=== PATIENT | male | born 1970 | race Caucasian/White ===

== ENCOUNTER 2020-06-09 19:33 | Emergency (ER) | payer OTHER ==
[~2020-06-09] VITALS: Ht 182.9 cm; Wt 104.0 kg
[2020-06-09 19:33] VITALS: BP 144/97
[2020-06-09] MEDS ORDERED: PRED20TA PO (19:44)
[2020-06-09] MEDS ORDERED: DIPH25CA58 PO (19:44)
[2020-06-09] MEDS ORDERED: FAMO-63 PO (19:44)
--- NOTE | 2020-06-09 19:44 | PHYS DOC ---
General Adult EDM: Chief Complaint: INSECT BITE HPI: HPI: Arnold Elder is a 49-year-old male who presents approximately 2 hours following an unknown insect bite/sting. Patient states that he was walking in his yard when he walked past a bunch of "flies" and felt a sting on his upper lip. He then went inside and took 50 mg of Benadryl and placed a cold rag over the area. Over the following hours the swelling progressed, so he took an additional 25 mg of Benadryl. The swelling continued to progress so he decided to come to the emergency department. He affirms facial swelling, but denies any other complaints including rash, shortness of breath, or urinary symptoms. He denies history of allergies. His last bite/sting encounter was about 1 week ago when he was stung in the left side of his frontal area. The swelling progressed for about 2 days before relieving on its own. Review of Systems: Review of Systems: Constitutional: Denies fever or chills; affirms insect bite/sting Eyes: Denies redness or eye pain HENT: Denies nasal congestion or sore throat; affirms facial swelling Respiratory: Denies cough or shortness of breath Cardiovascular: Denies chest pain or palpitations GI: Denies abdominal pain, nausea, or vomiting : Denies dysuria or hematuria Musculoskeletal: Denies back pain or joint pain Integument: Denies rash or skin lesions Neurologic: Denies headache, focal weakness or sensory changes Complete systems were reviewed and found to be within normal limits, except as documented in this note. Current Medications: Current Meds: Current Medications Medications (Trade) Dose Ordered Sig/Vincent Start Time Stop Time Status Last Admin Dose Admin Dexamethasone Sodium Phosphate (Decadron) 10 mg 1X ONCE 06/09/20 19:45 06/09/20 19:46 UNV Diphenhydramine HCl (Benadryl) 25 mg 1X ONCE 06/09/20 19:45 06/09/20 19:46 UNV Famotidine (Pepcid) 20 mg 1X ONCE 06/09/20 19:45 06/09/20 19:46 UNV Physical Exam: PE: Constitutional: Well developed, well nourished, no acute distress, non-toxic appearance HENT: Normocephalic, atraumatic Eyes: PERRL, EOMI, conjunctiva normal, no discharge Neck: Normal range of motion, no tenderness, supple Lungs & Thorax: No respiratory distress, equal chest rise and fall, clear to all station bilaterally, no wheezes rales or rhonchi Cardiac: Regular rate rhythm, no murmur Abdomen: Soft, no tenderness Skin: Warm, dry; upper lip is edematous with erythema extending to the right m axilla, no obvious stinger or other sign of trauma, nontender to the touch, minimal intraoral edema Back: No tenderness, no CVA tenderness Extremities: No tenderness, ROM intact, no edema Neurologic: Alert and oriented X 3, normal motor function, normal sensory function, no focal deficits noted Psychologic: Affect normal, judgment normal Radiology/Procedures: Impressions: Insect bite/sting Localized allergic reaction Course & Med Decision Making: Course & Med Decision Making Patient presented with an insect bite/sting as presented above. History and physical exam provide low suspicion allergic reaction. Since patient has already taken 75 mg of Benadryl, he is advised to not take anymore for at least 4 hours following initial dose at 1920. He will be given dexamethasone and Pepcid in the emergency department and encouraged to continue care at home with prescription for dexamethasone and Pepcid and [id number] Benadryl as needed. Dragon Disclaimer: Nemedia Disclaimer: This electronic medical record was generated, in whole or in part, using a voice recognition dictation system. Departure Departure: Impression: Primary Impression: Bee sting Qualified Codes: T63.444A - Toxic effect of venom of bees, undetermined, initial encounter Disposition: HOME/RESIDENCE PRIOR TO ADM Condition: STABLE Referrals: PCP,NO (PCP) Patient Instructions: Bee, Wasp, or Hornet Sting Scripts Prednisone (PREDNISONE) 20 Mg Tablet 2 TAB PO DAILY for Bee sting, #8 TAB Start this prescription tomorrow, 06/10/2020 Prov: PRINCESS LEONG DO 06/09/20 Diphenhydramine Hcl (BENADRYL) 25 Mg Capsule 1 CAP PO Q6HRS PRN for RASH, #20 CAP 0 Refills Prov: PRINCESS LEONG DO 06/09/20 Famotidine (PEPCID) 20 Mg Tablet 1 TAB PO BID for Bee sting for 5 Days, #10 TAB Prov: PRINCESS LEONG DO 06/09/20 Justification of Admission: Justification of Admission: Justification of Admission Dx: N/A PRINCESS LEONG DO Jun 09, 2020 19:44
[2020-06-09] MEDS ORDERED: diphenhydrAMINE HCL 25 MG CAPSULE PO ONE (19:45)
[2020-06-09] MEDS ORDERED: FAMOTIDINE 20 MG TABLET PO ONE (19:45)
[2020-06-09] MEDS ORDERED: DEXAMETHASONE SOD PHOS 4 MG/ML VIAL. IM ONE (19:45)
[2020-06-09] MEDS ORDERED: DEXAMETHASONE SOD PHOS 10 MG/ML VIAL. ONE (19:57)
[2020-06-09] MEDS ORDERED: DEXAMETHASONE SOD PHOS 10 MG/ML VIAL. IM ONE (20:00)
== END 2020-06-09 20:20 | disposition home or self-care (01) ==
LOC: ER 19:33
DX: T63.441A Toxic effect of venom of bees, accidental (unintentional), initial encounter (principal); Y92.89 Other specified places as the place of occurrence of the external cause
CPT/HCPCS: 96372; 99283; J1100